=== PATIENT | female | born 1980 | race Hispanic/Latino ===

== ENCOUNTER 2017-06-28 02:40 | Inpatient (IN) | payer BC ==
[~2017-06-28] VITALS: Ht 160 cm; Wt 91.6 kg
[2017-06-28 03:31] LABS: BILIRUBIN,URINE Negative (NEGATIVE); COLOR,URINE Yellow (YELLOW); GLUCOSE, URINE (UA) Negative (NEGATIVE); KETONES,URINE Negative (NEGATIVE); LEUKOCYTE ESTERASE ,URINE Large (NEGATIVE); NITRATE,URINE Negative (NEGATIVE); OCCULT BLOOD,URINE Trace (NEGATIVE); PH,URINE 7.5 (5.0-8.0); PROTEIN,URINE Negative (NEGATIVE); UROBILINOGEN,URINE 0.2 mg/dL (0.2-1.0)
[2017-06-28 03:33] LABS: APPEARANCE,URINE SLIGHTLY CLOUDY (CLEAR)
[2017-06-28] MEDS ORDERED: LACTATED RINGERS 1000ML 1,000 ML IV PRN ×2 (03:37→07:54)
[2017-06-28 03:47] LABS: BACTERIA,URINE Few /HPF (None Seen); MUCUS,URINE Few LPF (None Seen); SQUAMOUS EPITHELIAL CELL,UR Moderate /HPF (0-2)
[2017-06-28 03:48] LABS: HEMATOCRIT 35.3 % (36-48); MEAN CORPUSCULAR HEMOGLOBIN 26.6 pg (27.0-33.0); MEAN CORPUSCULAR HGB CONC 32.5 g/dL (32.0-36.0); MEAN CORPUSCULAR VOLUME 81.7 fL (79-99); NUCLEATED RED BLOOD CELLS 0.1 % (0.0-0.19); PLATELET COUNT (AUTO) 327 K/uL (130-400); RED BLOOD CELL COUNT(AUTO) 4.32 MIL/uL (4.00-5.50); RED CELL DISTRIBUTION WIDTH 16.6 % (11.0-15.5)
[2017-06-28] MEDS ORDERED: OXYTOCIN 10 USP UNITS/ML 20 UNIT in LACTATED RINGERS 1000ML 1,000 ML IV SCH (08:00)
[2017-06-28] MEDS ORDERED: NALOXONE HCL 0.4 MG/1 ML ML IV PRN (08:00)
[2017-06-28] MEDS ORDERED: OXYTOCIN-LR 20 UNITS/1000 ML 1,000 ML IV SCH (08:00)
[2017-06-28] MEDS ORDERED: EPHEDRINE SULFATE 50 MG/ML AMPULE IVP PRN (08:00)
[2017-06-28] MEDS ORDERED: LACTATED RINGERS 500 ML 500 ML IV PRN (08:00)
[2017-06-28] MEDS ORDERED: OXYTOCIN 10 USP UNITS/ML ONE ×2 (08:15→14:56)
[2017-06-28] MEDS ORDERED: PROMETHAZINE HCL 25 MG/ML 1ML AMPULE IM ONE (08:15)
[2017-06-28] MEDS ORDERED: MEPERIDINE-PF 50 MG/ML SYG ONE (08:15)
[2017-06-28] MEDS ORDERED: LANOLIN 30GM OINTMENT TP PRN (14:00)
[2017-06-28] MEDS ORDERED: DIPH,PERTUSS(ACELL),TET VAC/PF 0.5 ML VIAL IM PRN (14:00)
[2017-06-28] MEDS ORDERED: MEASLES/MUMPS/RUBELLA VACCINE, LIVE 0.5 ML/VIAL SQ PRN (14:00)
[2017-06-28] MEDS ORDERED: HYDROCODONE/ACETAMINOPHEN 5/325 MG TAB PO PRN (14:00)
[2017-06-28] MEDS ORDERED: BENZOCAINE/LANOLIN/ALOE VERA 60 ML AEROSOL TP PRN (14:00)
[2017-06-28] MEDS ORDERED: WITCH HAZEL 1 PAD TP PRN (14:00)
[2017-06-28] MEDS ORDERED: ACETAMINOPHEN-CODEINE 300/30MG TAB PO PRN (14:00)
[2017-06-28 16:40] VITALS: BP 133/69
[2017-06-28] MEDS: IBUPROFEN 600 MG TABLET PO PRN ×2 (17:00→23:02)
[2017-06-28 20:24] VITALS: BP 122/78
[2017-06-28] MEDS: DOCUSATE SODIUM 100 MG CAP PO SCH (20:41)
[2017-06-28 23:47] VITALS: BP 135/76
[2017-06-29 04:42] VITALS: BP 97/59
[2017-06-29 07:35] LABS: HEPATITIS Bs ANTIGEN SCREEN P Negative (Negative)
[2017-06-29 08:12] VITALS: BP 126/61
[2017-06-29] MEDS: DOCUSATE SODIUM 100 MG CAP PO SCH (08:16)
[2017-06-29] MEDS: IBUPROFEN 600 MG TABLET PO PRN (08:17)
[2017-06-29 11:46] VITALS: BP 111/75
== END 2017-06-29 15:30 | disposition home or self-care (01) | DRG 775 ==
LOC: EDH 02:40 → LDH 02:41 → OBSVTOIN 07:54 → LDH 09:00 → WSH 16:40
PROVIDERS: ADMIT Obstetrics & Gynecology; ATTEND Obstetrics & Gynecology
PROC: 0KQM0ZZ Repair Perineum Muscle, Open Approach (ICD-10-PCS; principal; 2017-06-28)
PROC: 10E0XZZ Delivery of Products of Conception, External Approach (ICD-10-PCS; 2017-06-28)
PROC: 3E0234Z Introduction of Serum, Toxoid and Vaccine into Muscle, Percutaneous Approach (ICD-10-PCS; 2017-06-28)
PROC: 3E0134Z Introduction of Serum, Toxoid and Vaccine into Subcutaneous Tissue, Percutaneous Approach (ICD-10-PCS; 2017-06-28)
PROC: 3E0R3BZ Introduction of Anesthetic Agent into Spinal Canal, Percutaneous Approach (ICD-10-PCS; 2017-06-28)
PROC: 00HU33Z Insertion of Infusion Device into Spinal Canal, Percutaneous Approach (ICD-10-PCS; 2017-06-28)
DX: O69.81X0 Labor and delivery complicated by cord around neck, without compression, not applicable or unspecified (principal); O70.1 Second degree perineal laceration during delivery; Z37.0 Single live birth; Z3A.39 39 weeks gestation of pregnancy; Z23 Encounter for immunization
CPT/HCPCS: 36415; 81001; 85027; 86592; 86850; 86900; 86901; 87340; A4314; A4606; J2175; J2550; J2590; J7120